=== PATIENT | male | born 1980 | race Caucasian/White ===

== ENCOUNTER 2018-06-09 15:17 | Emergency (ER) | payer BC ==
[2018-06-09 15:25] VITALS: BP 119/79
[2018-06-09] MEDS ORDERED: Lidocaine 2% PF * 5 ML VIAL INJ ONE (16:21)
[2018-06-09] MEDS ORDERED: Lidocaine 2% PF * 5 ML VIAL ONE (16:24)
--- NOTE | 2018-06-09 16:49 | UC ---
Skin Complaint HPI - HPI Summary HPI Summary: sliver left index finger x 1 days sliver is under the finger nail very painful - History of Current Complaint Chief Complaint: UCSkin Time Seen by Provider: 06/09/18 16:09 Stated Complaint: SOFT TISSUE COMPLAINT Hx Obtained From: Patient Onset/Duration: Sudden Onset, Lasting Days - 1, Still Present Timing: Constant Onset Severity: Severe Current Severity: Severe Pain Intensity: 10 Location: Discrete - left index fingernail Character: Swelling, Pain, Redness Aggravating Factor(s): Touch Alleviating Factor(s): Nothing Associated Signs & Symptoms: Positive: Tenderness Related History: Foreign Body - Allergy/Home Medications Allergies/Adverse Reactions: Allergies Allergy/AdvReac Type Severity Reaction Status Date / Time No Known Allergies Allergy Verified 06/09/18 15:25 Home Medications: Home Medications NK [No Home Medications Reported] 06/09/18 [History Confirmed 06/09/18] Review of Systems Constitutional: Negative Eyes: Negative ENT: Negative Respiratory: Negative Is Patient Immunocompromised?: No All Other Systems Reviewed And Are Negative: Yes PMH/Surg Hx/FS Hx/Imm Hx Previously Healthy: Yes - Surgical History Surgical History: Yes Surgery Procedure, Year, and Place: left ear,right elbow - Family History Known Family History: Negative: Diabetes - Social History Alcohol Use: Occasionally Substance Use Type: None Smoking Status (MU): Never Smoked Tobacco Physical Exam Triage Information Reviewed: Yes Appearance: Well-Appearing, No Pain Distress, Well-Nourished Vital Signs: Initial Vital Signs Temp 97.8 F 06/09/18 15:22 Pulse 78 06/09/18 15:22 Resp 18 06/09/18 15:22 BP 119/79 06/09/18 15:22 Pulse Ox 98 06/09/18 15:22 Vital Signs Reviewed: Yes Eye Exam: Normal Eyes: Positive: Conjunctiva Clear ENT: Positive: Normal ENT inspection, Hearing grossly normal, Pharynx normal Neck: Positive: Supple, Nontender, No Lymphadenopathy Respiratory Exam: Normal Respiratory: Positive: Chest non-tender, Lungs clear, Normal breath sounds Cardiovascular: Positive: RRR, No Murmur, Pulses Normal Skin: Positive: Other - sliever under the left index fingernail Course/Dx - Diagnoses Provider Diagnoses: foreign body left index finger Procedures - Procedure Summary Procedure Summary: removal of sliver under left index fingernail anesthesia 1 cc 2% lidocaine splinter forceps used to removed the sliver minimal bleeding bandaid was placed Discharge - Sign-Out/Discharge Documenting (check all that apply): Patient Departure All imaging exams completed and their final reports reviewed: No Studies - Discharge Plan Condition: Stable Disposition: HOME Patient Education Materials: Soft Tissue Foreign Body (ED) Referrals: No Primary Care Phys,NOPCP [Primary Care Provider] - If Needed - Billing Disposition and Condition Condition: STABLE Disposition: Home
== END 2018-06-09 16:39 | disposition home or self-care (01) ==
LOC: UCEAST 15:17
DX: S60.451A Superficial foreign body of left index finger, initial encounter (principal); X58.XXXA Exposure to other specified factors, initial encounter; Y93.9 Activity, unspecified; Y92.9 Unspecified place or not applicable
CPT/HCPCS: 99211; G0463

== ENCOUNTER 2019-06-21 13:52 | Emergency (ER) | payer BC ==
[2019-06-21 14:46] VITALS: BP 128/88
--- NOTE | 2019-06-21 15:03 | UC ---
Bite Injury/Animal HPI - HPI Summary HPI Summary: 38-year-old male comes in with a chief complaint of a tick bite. Patient noticed the tick in his left hip 4 days ago. He pulled it out. He doesn't think he left any foreign body in there. No fevers no chills feels well otherwise no bull's-eye rash. - History of Current Complaint Chief Complaint: UCSkin Stated Complaint: TICK BITE Time Seen by Provider: 06/21/19 14:54 Pain Intensity: 0 - Allergies/Home Medications Allergies/Adverse Reactions: Allergies Allergy/AdvReac Type Severity Reaction Status Date / Time No Known Allergies Allergy Verified 06/21/19 14:42 PMH/Surg Hx/FS Hx/Imm Hx Previously Healthy: Yes - Surgical History Surgical History: Yes Surgery Procedure, Year, and Place: left ear. right elbow - Family History Known Family History: Negative: Diabetes - Social History Alcohol Use: Rare Substance Use Type: None Smoking Status (MU): Never Smoked Tobacco Review of Systems All Other Systems Reviewed And Are Negative: Yes Constitutional: Positive: Negative Skin: Positive: Other - SEE HPI Eyes: Positive: Negative ENT: Positive: Negative Respiratory: Positive: Negative Cardiovascular: Positive: Negative Gastrointestinal: Positive: Negative Motor: Positive: Negative Neurovascular: Positive: Negative Musculoskeletal: Positive: Negative Neurological: Positive: Negative Psychological: Positive: Anxious Is Patient Immunocompromised?: No Physical Exam Triage Information Reviewed: Yes Appearance: Well-Appearing, No Pain Distress, Well-Nourished Vital Signs: Initial Vital Signs Temp 98 F 06/21/19 14:42 Pulse 77 06/21/19 14:42 Resp 16 06/21/19 14:42 BP 128/88 06/21/19 14:42 Pulse Ox 98 06/21/19 14:42 Vital Signs Reviewed: Yes Eye Exam: Normal Eyes: Positive: Conjunctiva Clear Neck: Positive: Supple Respiratory: Positive: No respiratory distress Musculoskeletal: Positive: Strength Intact, ROM Intact Neurological: Positive: Alert Psychological: Positive: Age Appropriate Behavior Skin: Positive: Other - There is a scab that's 5 mm in diameter on the left hip. No erythema no drainage no bull's-eye rash. I do not appreciate any foreign body. Bite Injury Course/Dx - Course Course Of Treatment: Patient is 4 days out from the tick bite studies passes 72 hour For the doxycycline 200 mg and were unsure if the tick was in for 36 hours however after discussing the various options patient prefers to be treated with oxygen second 100 mg by mouth single dose. He's any reevaluated if he develops a bull' s-eye rash or any signs or symptoms of Lyme disease. - Differential Dx/Diagnosis Provider Diagnosis: Tick bite Discharge ED - Sign-Out/Discharge Documenting (check all that apply): Patient Departure All imaging exams completed and their final reports reviewed: No Studies - Discharge Plan Condition: Stable Disposition: HOME Prescriptions: DOXYcycline CAP(*) [DOXYcycline 100MG CAP(*)] 200 mg PO ONCE #2 cap Patient Education Materials: Tick Bite (ED) Referrals: [facility] [place] [facility] [Outside] Additional Instructions: FOLLOW UP WITH YOUR DOCTOR IF NOT COMPLETELY IMPROVED. GET RECHECKED SOONER IF WORSE; BULLS EYE RASH, FEVER, SYMPTOMS OF LYME DISEASE OR ANY QUESTIONS OR CONCERNS. - Billing Disposition and Condition Condition: STABLE Disposition: Home
== END 2019-06-21 15:11 | disposition home or self-care (01) ==
LOC: UCCORT 13:52
DX: S70.262A Insect bite (nonvenomous), left hip, initial encounter (principal); X58.XXXA Exposure to other specified factors, initial encounter; Y93.9 Activity, unspecified
CPT/HCPCS: 99212; G0463